=== PATIENT | female | born 1975 | race Caucasian/White ===

== ENCOUNTER 2022-02-02 06:00 | Day surgery (SDC) | payer OTHER, BC ==
[2022-02-02] MEDS ORDERED: Lactated Ringers 1,000 ML IV SCH (06:30)
[2022-02-02] MEDS ORDERED: Nozin Nasal Sanitizer NASBOTH ONE (06:30)
[2022-02-02] MEDS ORDERED: Bupivacaine 0.5% 30 ML SDV ONE (06:36)
[2022-02-02] MEDS ORDERED: Propofol 200 MG/20 ML SDV ONE ×4 (07:21→16:23)
[2022-02-02] MEDS ORDERED: fentaNYL 100 MCG/2 ML SDV ONE ×3 (07:21→15:56)
[2022-02-02] MEDS ORDERED: Midazolam 1 MG/ML 2 ML SDV ONE ×3 (07:22→16:01)
[2022-02-02] MEDS ORDERED: Lidocaine 0.5% 50 ML SDV ONE (07:23)
[2022-02-02] MEDS ORDERED: ceFAZolin 1 GM in Premix Bag 1 BAG IV ONE (07:30)
[2022-02-02] MEDS ORDERED: ceFAZolin 1 GM Vial ONE (15:52)
[2022-02-02] MEDS ORDERED: Ondansetron 4 MG/2 ML SDV ONE (16:20)
[2022-02-02] MEDS ORDERED: Dexamethasone 4 MG/ML SDV ONE (16:20)
[2022-02-02] MEDS ORDERED: Acetaminophen/HYDROcodone 325-5 MG Tab PO ONE (17:10)
== END 2022-02-02 17:56 | disposition home or self-care (01) ==
LOC: JP.SDS 06:00
PROVIDERS: ATTEND Specialist
DX: M18.0 Bilateral primary osteoarthritis of first carpometacarpal joints (principal); I10 Essential (primary) hypertension; Z88.0 Allergy status to penicillin; Z88.2 Allergy status to sulfonamides; Z91.040 Latex allergy status
CPT/HCPCS: 36415; 80053; 85027; A9270-GY; C1762; J0690; J1100; J2250; J2405; J2704; J3010; J3490; J7120

== ENCOUNTER 2022-11-30 06:34 | Day surgery (SDC) | payer OTHER, BC ==
[~2022-11-30 06:34] MED LIST: Bupivacaine 0.5% 50 ML MDV ONE
[2022-11-30] MEDS ORDERED: Nozin Nasal Sanitizer NASBOTH ONE (07:00)
[2022-11-30] MEDS ORDERED: ceFAZolin 2 GM in Sodium Chloride 0.9% 50 ML IV ONE (07:00)
[2022-11-30] MEDS ORDERED: Lactated Ringers 1,000 ML IV SCH (07:00)
[2022-11-30 07:17] LABS: ESTIMATED GFR 69 mL/min (>60)
[2022-11-30] MEDS ORDERED: fentaNYL 100 MCG/2 ML SDV ONE ×3 (07:30→08:54)
[2022-11-30] MEDS ORDERED: Midazolam 1 MG/ML 2 ML SDV ONE ×2 (07:31→08:01)
[2022-11-30] MEDS ORDERED: Propofol 200 MG/20 ML SDV ONE ×3 (07:31→08:53)
[2022-11-30] MEDS ORDERED: Lidocaine 0.5% 50 ML SDV ONE (07:31)
[2022-11-30] MEDS ORDERED: Acetaminophen/HYDROcodone 325-5 MG Tab PO ONE (10:48)
== END 2022-11-30 11:15 | disposition home or self-care (01) ==
LOC: JP.SDS 06:34
PROVIDERS: ATTEND Specialist
DX: M18.12 Unilateral primary osteoarthritis of first carpometacarpal joint, left hand (principal); I10 Essential (primary) hypertension; E66.9 Obesity, unspecified; Z68.33 Body mass index [BMI] 33.0-33.9, adult; Z88.0 Allergy status to penicillin; Z88.2 Allergy status to sulfonamides; Z91.040 Latex allergy status; Z98.890 Other specified postprocedural states; Z79.899 Other long term (current) drug therapy
CPT/HCPCS: 36415; 80053; 85027; A9270-GY; C1762; J0690; J2250; J2704; J3010; J3490; J7120

== ENCOUNTER 2023-01-05 06:34 | Day surgery (SDC) | payer BC ==
[2023-01-05] MEDS ORDERED: fentaNYL 50 MCG/ML SDV ONE (07:21)
[2023-01-05] MEDS ORDERED: Midazolam 1 MG/ML 2 ML SDV ONE (07:21)
[2023-01-05] MEDS ORDERED: Propofol 200 MG/20 ML SDV ONE (07:21)
[2023-01-05] MEDS ORDERED: Lactated Ringers 1,000 ML IV SCH (08:00)
== END 2023-01-05 09:21 | disposition home or self-care (01) ==
LOC: JP.SDS 06:34
PROVIDERS: ATTEND Family Medicine
DX: Z12.11 Encounter for screening for malignant neoplasm of colon (principal); I10 Essential (primary) hypertension; E66.9 Obesity, unspecified; Z68.32 Body mass index [BMI] 32.0-32.9, adult; Z88.0 Allergy status to penicillin; Z88.2 Allergy status to sulfonamides; Z91.040 Latex allergy status; Z98.890 Other specified postprocedural states; Z87.891 Personal history of nicotine dependence; Z79.899 Other long term (current) drug therapy
CPT/HCPCS: 45378; J2250; J2704; J3010; J7120